=== PATIENT | female | born 1985 | race American Indian/Alaskan Native ===

== ENCOUNTER 2021-02-13 15:41 | Emergency (ER) | payer SELFPAY ==
[2021-02-13 16:05] VITALS: BP 101/65
[2021-02-13] MEDS ORDERED: LIDOCAINE-MPF (1%) 10 MG/1 ML VIAL 5 ML INFILTRATI ONE (16:11)
--- NOTE | 2021-02-13 16:31 | Emergency Department Report ---
- General Chief complaint: Skin/Abscess/Foreign Body Stated complaint: RT LEG PAIN/BUMP ON FACE Time Seen by Provider: 02/13/21 16:10 Source: patient Mode of arrival: Ambulatory Limitations: No Limitations - History of Present Illness Initial comments: Patient is a 36-year-old female presents emergency room a lump to the right eyebrow that has been present for 2 weeks. Patient states that she went to an urgent care and was given a prescription for doxycycline and she completed the course 2 days ago but it has not improved. She denies any drainage, fever, vomiting, chills. No past medical history. No allergies to medications. - Related Data Allergies Allergy/AdvReac Type Severity Reaction Status Date / Time No Known Allergies Allergy Unverified 02/13/21 16:01 Abscess Boil HPI - HPI Chief Complaint: Skin/Abscess/Foreign Body Stated Complaint: RT LEG PAIN/BUMP ON FACE Time Seen by Provider: 02/13/21 16:10 Allergies/Adverse Reactions: Allergies Allergy/AdvReac Type Severity Reaction Status Date / Time No Known Allergies Allergy Unverified 02/13/21 16:01 ED Review of Systems ROS: Stated complaint: RT LEG PAIN/BUMP ON FACE Other details as noted in HPI Comment: All other systems reviewed and negative ED Past Medical Hx - Past Medical History Previous Medical History?: No - Surgical History Past Surgical History?: No ED Physical Exam - General Limitations: No Limitations General appearance: alert, in no apparent distress - Head Head exam: Present: atraumatic, normocephalic - Eye Eye exam: Present: normal appearance - ENT ENT exam: Present: mucous membranes moist - Neurological Exam Neurological exam: Present: alert, oriented X3 - Psychiatric Psychiatric exam: Present: normal affect, normal mood - Skin Skin exam: Present: warm, dry, other (1 cm area of edema present to the right eyebrow,there is fluctuance, no erythema or increased warmth, no surrounding c ellulitis) ED Course Vital Signs 02/13/21 16:04 Temperature 99.1 F Pulse Rate 83 Respiratory 20 Rate Blood Pressure 101/65 [Right] O2 Sat by Pulse 100 Oximetry - I & D Right Face Type of Procedure: Simple Site: right eyebrow Blade Size: 11 I & D Procedure: betadine prep, sterile drapes applied, sterile dressing applied Progress: Verbal consent obtained by patient Discussed cosmetic effects and scarring with patient, she states that she would like to have an I&D Prepped with Betadine, sterile drapes applied, 11 blade used to make a 0.5 cm incision, serous fluid expressed, tissue-like capsule removed, no purulent drainage, no foul odor, irrigated with saline, patient tolerated well, no complications, bleeding controlled, Band-Aid applied ED Medical Decision Making - Medical Decision Making Patient is a 36-year-old female presents emergency room a lump to the right eyebrow that has been present for 2 weeks. Patient states that she went to an urgent care and was given a prescription for doxycycline and she completed the course 2 days ago but it has not improved. She denies any drainage, fever, vomiting, chills. No past medical history. No allergies to medications. Vitals are normal. On exam:1 cm area of edema present to the right eyebrow,there is fluctuance, no erythema or increased warmth, no surrounding cellulitis. Incision and drainage performed per procedure note without any complications evaluation appears consistent with cyst. advised pt Please keep area clean, dry. Wash with antibacterial soap and water pat dry. No hot tub, no in soaking water. Follow-up with primary care doctor for reexamination. Return to emergency room for any new or worsening symptoms. Critical care attestation.: If time is entered above; I have spent that time in minutes in the direct care of this critically ill patient, excluding procedure time. ED Disposition Clinical Impression: Cyst of skin of eyebrow Disposition: 01 HOME / SELF CARE / HOMELESS Is pt being admited?: No Does the pt Need Aspirin: No Condition: Stable Instructions: Incision and Drainage, Care After Additional Instructions: Please keep area clean, dry. Wash with antibacterial soap and water pat dry. No hot tub, no in soaking water. Follow-up with primary care doctor for reexamination. Return to emergency room for any new or worsening symptoms. Referrals: HAROON MASTERSON MD [Staff Physician] - 3-5 Days [facility] [Provider Group] - 3-5 Days [facility] [Provider Group] - 3-5 Days Time of Disposition: 16:30 Print Language: YORUBA
== END 2021-02-13 16:42 | disposition home or self-care (01) ==
LOC: ED 15:41
DX: L72.8 Other follicular cysts of the skin and subcutaneous tissue (principal); H57.89 Other specified disorders of eye and adnexa
CPT/HCPCS: 99281